=== PATIENT | female | born 1985 | race Caucasian/White ===

== ENCOUNTER 2017-05-02 13:58 | Emergency (ER) | payer MEDICAID, OTHER ==
[2017-05-02 14:26] VITALS: BP 111/62
[2017-05-02] MEDS ORDERED: Lidocaine 4% TOPICAL* 50 ML TOP.SOLN TOPICAL ONE ×3 (14:47→15:04)
--- NOTE | 2017-05-02 14:47 | UC ---
Complaint Female HPI - HPI Summary HPI Summary: 32 YEAR OLD FEMALE PRESENTS WITH COMPLAINS OF SEVERE BILATERAL AREOLA IRRITATION . - History Of Current Complaint Chief Complaint: [facility] Stated Complaint: PERSONAL Time Seen by Provider: 05/02/17 14:42 Hx Obtained From: Patient Hx Last Menstrual Period: 04/21/17 Onset/Duration: Lasting Hours Timing: Constant Severity Initially: Moderate Severity Currently: Moderate Pain Scale Used: 0-10 Numeric - 7 Character: Sharp Aggravating Factor(s): Movement Alleviating Factor(s): Position Associated Signs And Symptoms: Positive: Negative - Allergies/Home Medications Allergies/Adverse Reactions: Allergies Allergy/AdvReac Type Severity Reaction Status Date / Time Latex Allergy Itching Verified 05/02/17 14:27 Naproxen Allergy Nausea Verified 05/02/17 14:27 Home Medications: Home Medications medroxyPROGESTERone ACETATE* [DEPO-Provera] 150 mg IM ONCE 05/02/17 [History Confirmed 05/02/17] PMH/Surg Hx/FS Hx/Imm Hx Previously Healthy: Yes - Surgical History Surgical History: Yes Surgery Procedure, Year, and Place: T&A - Family History Known Family History: Positive: None - Social History Alcohol Use: Weekly Substance Use Type: Marijuana Substance Use Comment - Amount & Last Used: occasionally Smoking Status (MU): Heavy Every Day Tobacco Smoker Type: Cigarettes Amount Used/How Often: 1/2 ppd Review of Systems Constitutional: Negative Skin: Other - BILATERAL AEROLA PAIN/SWELLING/PURULENT DRAINAGE Eyes: Negative ENT: Negative Respiratory: Negative Cardiovascular: Negative Gastrointestinal: Negative Genitourinary: Negative Motor: Negative Neurovascular: Negative Musculoskeletal: Negative Neurological: Negative Psychological: Negative All Other Systems Reviewed And Are Negative: Yes Physical Exam Triage Information Reviewed: Yes Vital Signs: Initial Vital Signs Temp 37.1 C 05/02/17 14:10 Pulse 68 05/02/17 14:10 Resp 14 05/02/17 14:10 BP 111/62 05/02/17 14:10 Pulse Ox 100 05/02/17 14:10 Eye Exam: Normal ENT Exam: Normal Dental Exam: Normal Neck exam: Normal Neck: Positive: 1 Respiratory Exam: Normal Cardiovascular Exam: Normal Abdominal Exam: Normal Musculoskeletal Exam: Normal Neurological Exam: Normal Psychological Exam: Normal Skin: Positive: Other - BILATERAL AEROLA PAIN/SWELLING/PURULENT DRAINAGE Complaint Female Dx - Differential Dx/Diagnosis Provider Diagnoses: BILATERAL AEROLA PAIN/SWELLING/PURULENT DRAINAGE Discharge - Discharge Plan Condition: Stable Disposition: HOME Prescriptions: DOXYcycline CAP(*) [DOXYcycline 100MG CAP(*)] 100 mg PO BID #14 cap Mupirocin 2% OINT* [Bactroban 2 % Oint*] 1 applic TOPICAL BID #1 tube Patient Education Materials: Abscess (ED) Referrals: No Primary Care Phys,NOPCP [Medical Doctor] -
== END 2017-05-02 15:15 | disposition home or self-care (01) ==
LOC: UCCORT 13:58
DX: N64.4 Mastodynia (principal); N63 Unspecified lump in breast; R89.9 Unspecified abnormal finding in specimens from other organs, systems and tissues; Z72.0 Tobacco use
CPT/HCPCS: 87070; 87205; 99212; G0463